=== PATIENT | male | born 1960 | race Caucasian/White ===

== ENCOUNTER 2019-07-20 20:30 | Emergency (ER) | payer OTHER ==
[~2019-07-20] VITALS: Ht 177.8 cm; Wt 88.5 kg
[2019-07-20 20:30] VITALS: BP_SYST 205
--- NOTE | 2019-07-20 20:52 | NUR ---
12 lead ekg performed on patient by radiology special procedure tech. Given to .
--- NOTE | 2019-07-20 21:39 | NUR ---
ER at bedside examining patient.
--- NOTE | 2019-07-20 21:39 | NUR ---
Pt awake, alert, oriented x4. Pt chief complaint of Dizziness. Pt states he feels like he is "falling" and cannot stand without falling over. Pt denies chest pain, nausea, vomiting, diarrhea, shortness of breath. Pt denies any other medical complaint at this time. Pt brought in by ambulance. VSS
--- NOTE | 2019-07-20 21:39 | NUR ---
Pt moved to ER bed 03, placed to gown and upholsterer helper. Report given to ISMA Duncan.
[2019-07-20 21:52] LABS: CALCIUM 8.5 mg/dL (8.4-11.0); CREATININE 1.09 mg/dL (0.55-1.30); POTASSIUM 3.9 mmol/L (3.5-5.1); PROTHROMBIN TIME 10.4 SECS (9.5-12.5)
[2019-07-20 21:55] LABS: BASOPHILS % (AUTO) 0.4 % (0.0-2.0); EOSINOPHILS # (AUTO) 0.2 K/uL (0.0-0.4); EOSINOPHILS % (AUTO) 3.7 % (0.0-4.0); HEMATOCRIT 38.3 % (36-54); LYMPHOCYTES % (AUTO) 17.9 % (20.5-51.5); MEAN CORPUSCULAR HEMOGLOBIN 31 pg (27-31); MEAN CORPUSCULAR HGB CONC 34 % (32-36); MEAN CORPUSCULAR VOLUME 91 fL (79.0-98.0); MONOCYTES # (AUTO) 0.4 K/uL (0.0-1.0); MONOCYTES % (AUTO) 7.5 % (1.7-9.3); NEUTROPHILS % (AUTO) 70.5 % (40.0-70.0); PLATELET COUNT (AUTO) 194 K/uL (130-430); WHITE BLOOD COUNT (AUTO) 5.6 K/uL (4.8-10.8)
[2019-07-20 21:56] LABS: ALBUMIN 3.8 g/dL (3.4-4.8); TOTAL BILIRUBIN 0.5 mg/dL (0.0-1.0)
--- NOTE | 2019-07-20 22:00 | NUR ---
Pt presents with dizziness, vertigo symptoms. Lc "concerned" about cerebellar stroke b/c pt unsteady upon standing. NIH 0. Code stroke initiated. Dr. Platt to speak with ER physician at [facility].
--- NOTE | 2019-07-20 22:10 | NUR ---
Attempt road test and pt unable to tolerate standing.
--- NOTE | 2019-07-20 22:20 | NUR ---
Dr. Platt on phone with Dr. Guy, ER physician at [facility]. Pt accepted for transfer as a "level 1 Code Stroke." Transfer in progress.
--- NOTE | 2019-07-20 22:31 | NUR ---
bedside re-evaluating the patient.
[2019-07-20 23:04] VITALS: BP_SYST 179
--- NOTE | 2019-07-20 23:05 | NUR ---
Patient to be transferred to [facility]. Pt Is being transferred due to higher level of care. Receiving facility has accepting physician and available space. ER physician has signed transfer form. Patient or responsible alliance party has agreed to transfer and signed form. Patient belongings inventoried and will be sent with patient. Copy of nursing notes, lab reports, EKG, Physicians Orders and Radiology to be sent with patient. Report called to ISMA Box at receiving facility. Receiving physician is . [facility] ambulance service on scene for transfer, Report given to ISMA Logan
== END 2019-07-20 23:05 | disposition short-term general hospital (02) ==
LOC: SED 20:30
DX: I63.9 Cerebral infarction, unspecified (principal); E87.8 Other disorders of electrolyte and fluid balance, not elsewhere classified; E78.00 Pure hypercholesterolemia, unspecified; E11.9 Type 2 diabetes mellitus without complications; I10 Essential (primary) hypertension; E07.9 Disorder of thyroid, unspecified
CPT/HCPCS: 36415; 70450-TC; 71045; 80053; 84484; 85025; 85610-TC; 85730-TC; 93005; 99285

== ENCOUNTER 2021-02-11 10:10 | Emergency (ER) | payer OTHER ==
[~2021-02-11] VITALS: Ht 180.3 cm; Wt 90.7 kg
[2021-02-11 10:23] VITALS: BP_SYST 179
[2021-02-11] MEDS ORDERED: KETOROLAC TROMETHAMINE 60 MG/2 ML VIAL IM ONE (10:45)
[2021-02-11 11:10] LABS: BASOPHILS % (AUTO) 0.3 % (0.0-2.0); EOSINOPHILS # (AUTO) 0.2 K/uL (0.0-0.4); EOSINOPHILS % (AUTO) 2.5 % (0.0-4.0); HEMATOCRIT 37.1 % (36-54); HEMOGLOBIN 12.4 g/dL (14.0-18.0); LYMPHOCYTES % (AUTO) 15.3 % (20.5-51.5); MEAN CORPUSCULAR HEMOGLOBIN 30 pg (27-31); MEAN CORPUSCULAR HGB CONC 33 % (32-36); MEAN CORPUSCULAR VOLUME 91 fL (79.0-98.0); MONOCYTES # (AUTO) 0.4 K/uL (0.0-1.0); MONOCYTES % (AUTO) 5.7 % (1.7-9.3); NEUTROPHILS # (AUTO) 4.9 K/uL (1.8-7.7); NEUTROPHILS % (AUTO) 76.2 % (40.0-70.0); PLATELET COUNT (AUTO) 198 K/uL (130-430); RED BLOOD CELL COUNT(AUTO) 4.08 MIL/uL (4.2-6.2); RED CELL DISTRIBUTION WIDTH 13.2 % (9.0-15.0); WHITE BLOOD COUNT (AUTO) 6.4 K/uL (4.8-10.8)
[2021-02-11 11:25] LABS: ANION GAP 9 (5-15); CALCIUM 9.1 mg/dL (8.4-11.0); CHLORIDE 106 mmol/L (98-107); GLUCOSE 240 mg/dL (70-99); POTASSIUM 4.3 mmol/L (3.5-5.1); PROTHROMBIN TIME 10.7 SECS (9.5-12.5); SODIUM SERUM 141 mmol/L (136-145); UREA NITROGEN, BLOOD 20 mg/dL (8-21)
[2021-02-11 11:31] LABS: ALANINE AMINOTRANSFERASE 25 U/L (12-78); ALBUMIN 3.6 g/dL (3.4-4.8); ASPARTATE AMINOTRANSFERASE 18 U/L (10-37); GFR AFRICAN AMERICAN 79 mL/min (>90); TOTAL BILIRUBIN 0.5 mg/dL (0.0-1.0)
[2021-02-11 11:54] LABS: ERYTHROCYTE SEDIMENTATION RATE 13 MM/HR (0-15)
[2021-02-11] MEDS ORDERED: IBUP-1971 PO (12:02)
[2021-02-11] MEDS ORDERED: HYDR-3917 PO (12:02)
[2021-02-11 12:18] VITALS: BP_SYST 122
[2021-02-11 15:07] LABS: C-REACTIVE PROTEIN QUANT < 0.2 mg/dL (0-0.5)
== END 2021-02-11 12:19 | disposition home or self-care (01) ==
LOC: SED 10:10
DX: S13.4XXA Sprain of ligaments of cervical spine, initial encounter (principal); Z79.899 Other long term (current) drug therapy; X50.9XXA Other and unspecified overexertion or strenuous movements or postures, initial encounter; Y93.89 Activity, other specified; Y92.89 Other specified places as the place of occurrence of the external cause; Y99.8 Other external cause status
CPT/HCPCS: 36415; 72125; 76376; 80053; 85025; 85610; 85651; 85730; 86140; 96372; 99284; J1885